=== PATIENT | female | born 1990 | race Caucasian/White ===

== ENCOUNTER → 2017-02-08 11:42 | Outpatient (CLI) | payer OTHER | END | disposition home or self-care (01) | LOC: LAB 11:42 | DX: R50.9 Fever, unspecified (principal); R05 Cough ==

== ENCOUNTER → 2017-02-08 11:47 | Outpatient (CLI) | payer OTHER | END | disposition home or self-care (01) | LOC: RAD 11:47 | DX: M94.0 Chondrocostal junction syndrome [Tietze] (principal); M43.12 Spondylolisthesis, cervical region; M53.2X2 Spinal instabilities, cervical region; M40.292 Other kyphosis, cervical region ==

== ENCOUNTER 2017-06-11 12:22 | Emergency (ER) | payer OTHER ==
[~2017-06-11] VITALS: Ht 154.9 cm; Wt 84.8 kg
[2017-06-11] MEDS ORDERED: TESSALON PERLE100 M1 PO (16:08)
[2017-06-11] MEDS ORDERED: PROMETHAZINE W118 ML PO (16:08)
== END 2017-06-11 16:05 | disposition home or self-care (01) ==
LOC: ER 12:22
DX: J00 Acute nasopharyngitis [common cold] (principal); M94.0 Chondrocostal junction syndrome [Tietze]

== ENCOUNTER 2018-04-19 10:33 | Outpatient (CLI) | payer OTHER ==
[~2018-04-19] VITALS: Ht 152.4 cm; Wt 88.5 kg
[~2018-04-19 10:33] MED LIST: PROMETHAZINE W118 ML PO; TESSALON PERLE100 M1 PO
== END 2018-04-19 10:45 | disposition home or self-care (01) ==
LOC: OFIC 805 10:33
DX: J31.0 Chronic rhinitis (principal); H61.23 Impacted cerumen, bilateral